=== PATIENT | male | born 1970 | race Caucasian/White ===

== ENCOUNTER → 2016-09-21 15:36 | Emergency (ER) | payer SELFPAY ==
[~2016-09-21 15:36] MED LIST: Naproxen TAB* 250 MG ONE; Naproxen TAB* 250 MG PO ONE
[2016-09-21 15:43] VITALS: BP 153/99
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
== END | disposition home or self-care (01) ==
LOC: ED 15:36
DX: T59.811A Toxic effect of smoke, accidental (unintentional), initial encounter (principal); R05 Cough; R51 Headache; Z87.891 Personal history of nicotine dependence; J70.5 Respiratory conditions due to smoke inhalation; Y92.89 Other specified places as the place of occurrence of the external cause
CPT/HCPCS: 36415; 71020; 82375; 93005; 99282; A9270-GY